=== PATIENT | male | born 2000 | race Hispanic/Latino ===

== ENCOUNTER 2022-09-05 18:55 | Emergency (ER) | payer OTHER, SELFPAY ==
[2022-09-05 19:24] VITALS: BP 132/67; PULSE 77; RESP 20; TEMP 36.2; O2SAT 98; BMI 38.2
[2022-09-05 20:19] LABS: Influenza A - CEPHEID Flu A NEGATIVE (NEGATIVE); Influenza B - CEPHEID Flu B NEGATIVE (NEGATIVE); Respiratory Syncytial Virus Negative (Negative)
[2022-09-05 20:22] LABS: COVID-19 CEPHEID 4-PLEX PCR Negative (Negative)
[2022-09-05 22:01] VITALS: PULSE 59; RESP 16; O2SAT 100
--- NOTE | 2022-09-05 22:23 | ED.GENADULT ---
HPI - General Adult General Chief complaint: Upper Respiratory Symptoms Stated complaint: Cough/Wheeze/Fever Time Seen by Provider: 09/05/22 22:03 Source: patient Mode of arrival: Ambulatory History of Present Illness HPI narrative: Otherwise healthy 22-year-old male here for evaluation of a couple days of coughing and occasional wheezing and fevers. He has tried [id number] medications without much improvement. No prior history of lung pathology. Related Data Previous Rx's Medication Instructions Recorded albuterol sulfate 90 mcg/actuation 2 puff inhalation Q6H PRN 09/05/22 aerosol inhaler shortness of breath or wheezing #8.5 grams Review of Systems Constitutional Constitutional: Reports system reviewed and no additional complaints, except as documented ENT Ears, Nose, Mouth, and Throat: Reports system reviewed and no additional complaints, except as documented Respiratory Respiratory: Reports system reviewed and no additional complaints, except as documented Allergic/Immunologic Allergic/Immunologic: Reports system reviewed and no additional complaints, except as documented Patient History Social History Smoking Status: Never smoker Smoking Status: Never smoker alcohol intake frequency: a few times a month Substance Use Type: does not use Exam Initial Vital Signs Initial Vital Signs: Vital Signs Temperature 97.2 F L 09/05/22 19:24 Pulse Rate 77 09/05/22 19:24 Respiratory Rate 20 09/05/22 19:24 Blood Pressure 132/67 09/05/22 19:24 Pulse Oximetry 98 09/05/22 19:24 Oxygen Delivery Method 09/05/22 19:24 HENFL Head: normal to inspection and normocephalic Mouth: moist mucous membranes Resp Effort & Inspection: normal respiratory effort Auscultation: clear to auscultation bilaterally and no wheezes Cardio Rate: regular rate Skin General: no rashes or lesions noted Neuro General: patient alert and moves all extremities Extrem General: normal to inspection and capillary refill normal Course Orders Ordered: ED Orders 09/05/22 19:30 Covid-19 + FLU A/B + RSV - PCR Stat 09/05/22 22:05 Throat Culture Stat Vital Signs Vital signs: Vital Signs - 8 hr 09/05/22 22:01 09/05/22 23:18 Pulse Rate 59 L 60 Respiratory Rate 16 16 Blood Pressure 132/77 Pulse Oximetry 100 98 Oxygen Delivery Method Room Air Room Air Medical Decision Making Lab Data Labs: Lab Results 09/05/22 Range/Units 19:30 SARS-CoV-2 (PCR) Negative (Negative) Influenza A (RT-PCR) Flu a negative (NEGATIVE) Influenza B (RT-PCR) Flu b negative (NEGATIVE) RSV (PCR) Negative (Negative) Point of Care Testing Rapid Strep A Negative Point of care testing: Point of Care Testing Rapid Strep A Negative MDM Narrative Medical decision making narrative: Clear lung exam. No indication for radiologic studies. No indication for antibiotics. No fevers. Provided reassurance and [id number] medications he could try home. Was sent home with an albuterol inhaler if he starts to have wheezing again. He expressed understanding and agreement. Discharge Plan Departure Patient Disposition: Home Clinical Impression: Wheezing, Cough Instructions: Cough Activity Restrictions/Additional Instructions: A prescription for an inhaler was sent to [facility] and you can use this as needed and as directed. Contact your primary provider for a follow-up. Return to the emergency department for any new or worsening symptoms. Prescriptions: New albuterol sulfate 90 mcg/actuation HFA aerosol inhaler 2 puff inhalation Q6H PRN (Reason: shortness of breath or wheezing) Qty: 8.5 0RF Referrals: Miscellaneous,Doctor, MD [Primary Care Provider] - Visit Report Forms: Patient Portal/API
[2022-09-05 23:18] VITALS: BP 132/77; PULSE 60; RESP 16; O2SAT 98
== END 2022-09-05 23:19 | disposition home or self-care (01) ==
PROVIDERS: Emergency Provider Emergency Medicine
DX: R06.2 Wheezing (principal); R05.9 Cough, unspecified; Z20.822 Contact with and (suspected) exposure to COVID-19
CPT/HCPCS: 0241U; 87070; 87880; 99282

== ENCOUNTER 2023-07-27 03:07 | Emergency (ER) | payer OTHER, SELFPAY ==
[2023-07-27 03:17] VITALS: BP 140/83; PULSE 100; RESP 20; TEMP 36.5; O2SAT 97; BMI 35.6
--- NOTE | 2023-07-27 03:17 | DI.RAD.S_ITS ---
PROCEDURE: XR SHOULDER LT MIN 2V INDICATIONS: poss dislocation TECHNIQUE: 3 views of the shoulder were acquired. COMPARISON: None. FINDINGS: Bones: No fractures or dislocations. No suspicious bony lesions. Visualized ribs appear intact. Soft tissues: No suspicious soft tissue calcifications. IMPRESSION: No acute shoulder fracture or dislocation. No discrepancies from preliminary reading. Dictated by: Michael Gutierrez M.D. on 07/27/2023 at 8:26 Approved by: Michael Gutierrez M.D. on 07/27/2023 at 8:26
--- NOTE | 2023-07-27 03:25 | ED.UPPEXIN ---
HPI - Extremity Injury (Upper) General Chief Complaint: Extremity Injury, Upper Stated Complaint: lt shoulder possibly disclocated Time Seen by Provider: 07/27/23 03:22 Source: patient Mode of arrival: Ambulatory History of Present Illness HPI narrative: Patient 23-year-old male who presents today with left shoulder pain and injury. Reports that he tripped over his dog fell down about 6 stairs landing on his left shoulder. He did not hit his head no neck pain no chest pain or shortness of breath. He denies any numbness or tingling in his shoulder. He is pain in 1 area but still able to move it pretty good but he does have decreased range of motion. Related Data Previous Rx's Medication Instructions Recorded albuterol sulfate 90 mcg/actuation 2 puff inhalation Q6H PRN 09/05/22 aerosol inhaler shortness of breath or wheezing #8.5 grams Allergies Allergy/AdvReac Type Severity Reaction Status Date / Time No Known Drug Allergies Allergy Verified 07/27/23 03:56 Review of Systems Review of Systems ROS Unobtainable: All systems reviewed & are unremarkable except as noted in HPI and below Patient History Social History Smoking Status: Never smoker Smoking Status: Never smoker alcohol intake frequency: a few times a month Substance Use Type: does not use Exam Initial Vital Signs Initial Vital Signs: Vital Signs Temperature 97.7 F 07/27/23 03:17 Pulse Rate 100 H 07/27/23 03:17 Respiratory Rate 20 07/27/23 03:17 Blood Pressure 140/83 07/27/23 03:17 Pulse Oximetry 97 07/27/23 03:17 Oxygen Delivery Method Room Air 07/27/23 03:17 GENERAL: Well-appearing, well-nourished and in no acute distress. CARDIOVASCULAR: peripheral pulses in tact, cap refill <2 sec RESPIRATORY: No respiratory distress, speaks in full sentences without difficulty [ABDOMEN: Soft, nontender, no guarding or rebound] EXTREMITIES: Normal range of motion, no clubbing or edema. Neurovascularly intact Left upper extremity no clavicle step-offs tender over humerus. No biceps injury good dab duction although limited, adduction extension and flexion. Mild decreased range of motion with internal external rotation NEUROLOGICAL: Cranial nerves II through XII grossly intact. Normal gait and speech. SKIN: Warm, dry, no petechiae, no rashes or lesions. Course Orders Ordered: ED Orders 07/27/23 03:17 XR shoulder LT min 2V Stat Discontinued Medications Ibuprofen (Ibuprofen 400 Mg Tablet) 800 mg PO NOW ONE Stop: 07/27/23 03:44 Last Admin: 07/27/23 03:58 Dose: 800 mg Vital Signs Vital signs: Vital Signs - 8 hr 07/27/23 03:17 Temperature 97.7 F Pulse Rate 100 H Respiratory Rate 20 Blood Pressure 140/83 Pulse Oximetry 97 Oxygen Delivery Method Room Air MDM - Extremity Injury (Upper) Imaging Data Extremity x-ray #1: My Impression: Negative for fracture Radiologist's Impression: Normal shoulder MDM Narrative Medical decision making narrative: Patient 23-year-old male who presents with left shoulder pain after fall down 6 stairs. He has no other injury. He is mildly tender but actually is pretty good range of motion. X-rays reviewed by myself and there is no dislocation or fracture. Supportive care only. He is given ibuprofen here in the ED. Discharge Plan Departure Patient Disposition: Home Clinical Impression: Left shoulder strain Instructions: Shoulder Sprain Activity Restrictions/Additional Instructions: *You have been diagnosed with left shoulder sprain *What to do: At this time increase activity as tolerated. Ice as needed *Continue to take medications as directed *Follow up with your primary care provider in 2-3 days or call [phone] *Return to ER if you should have increased pain numbness tingling weakness [or] any new, worsening or concerning symptoms Prescriptions: No Action albuterol sulfate 90 mcg/actuation HFA aerosol inhaler 2 puff inhalation Q6H PRN (Reason: shortness of breath or wheezing) Qty: 8.5 0RF Referrals: Miscellaneous,DoctorMD [Primary Care Provider] - Stand Alone Forms: Patient Portal/API, Work Release Note
[2023-07-27] MEDS: IBUPROFEN 400 MG TABLET 800 MG PO (03:58)
== END 2023-07-27 04:04 | disposition home or self-care (01) ==
PROVIDERS: Emergency Provider Emergency Medicine
DX: S43.402A Unspecified sprain of left shoulder joint, initial encounter (principal); W10.9XXA Fall (on) (from) unspecified stairs and steps, initial encounter
CPT/HCPCS: 73030; 99283

== ENCOUNTER 2023-08-01 14:58 | Emergency (ER) | payer OTHER, SELFPAY ==
[2023-08-01 15:13] VITALS: BP 147/70; PULSE 86; RESP 16; TEMP 37.2; O2SAT 98; BMI 35.6
[2023-08-01 15:48] LABS: Strep Grp A by PCR Rapid Negative (Negative)
[2023-08-01 15:49] LABS: COVID19 -Nasal RAPID POSITIVE (Negative)
--- NOTE | 2023-08-01 16:39 | ED_ITS ---
HPI - General Adult General Chief complaint: Upper Respiratory Symptoms Stated complaint: Sore throat, Fever Time Seen by Provider: 08/01/23 16:39 Source: patient Mode of arrival: Ambulatory History of Present Illness HPI narrative: Otherwise healthy 23-year-old young man has 48 hours of sore throat, dry cough, mild diarrhea with intermittent fevers. No one else is sick at home. He is not complaining of severe dyspnea, palpitations or chest pain. Related Data Previous Rx's Medication Instructions Recorded albuterol sulfate 90 mcg/actuation 2 puff inhalation Q6H PRN 09/05/22 aerosol inhaler shortness of breath or wheezing #8.5 grams benzonatate 200 mg capsule 200 mg PO BID-TID PRN cough #14 08/01/23 caps Allergies Allergy/AdvReac Type Severity Reaction Status Date / Time No Known Drug Allergies Allergy Verified 07/27/23 03:56 Review of Systems Review of Systems Narrative: Pertinent positive and negative findings as per HPI Patient History Social History Smoking Status: Never smoker Smoking Status: Never smoker alcohol intake frequency: a few times a month Substance Use Type: does not use Exam Initial Vital Signs Initial Vital Signs: Vital Signs Temperature 98.9 F 08/01/23 15:13 Pulse Rate 86 08/01/23 15:13 Respiratory Rate 16 08/01/23 15:13 Blood Pressure 147/70 H 08/01/23 15:13 Pulse Oximetry 98 08/01/23 15:13 Oxygen Delivery Method Room Air 08/01/23 15:13 General: Healthy appearing, in no acute distress. Able to give a complete and coherent history. Well-nourished well-developed HEENT: Moist mucous membranes, normal sclera with reactive pupils, mild pharyngeal edema without exudate Respiratory: Lungs are clear to auscultation, no wheezing no rales no rhonchi. Full and symmetrical air movement Cardiac: Regular rate and rhythm no murmurs no bruits Abdomen: Soft, nontender, good bowel tones, no flank pain Skin: Warm and dry, no rashes Neurologic: Grossly neurologically intact with no obvious asymmetries or abnormalities Psych: Cooperative, appropriate insight and affect Course Orders Ordered: ED Orders 08/01/23 15:18 COVID19 -Nasal RAPID Stat Strep Grp A by PCR Rapid Stat Throat Culture Stat Vital Signs Vital signs: Vital Signs - 8 hr 08/01/23 15:13 08/01/23 17:01 Temperature 98.9 F Pulse Rate 86 79 Respiratory Rate 16 18 Blood Pressure 147/70 H 156/69 H Pulse Oximetry 98 97 Oxygen Delivery Method Room Air Room Air Medical Decision Making Lab Data Labs: Lab Results 08/01/23 Range/Units 15:18 SARS-CoV-2 (PCR) Positive H (Negative) Group A Strep (PCR) Negative (Negative) MDM Narrative Medical decision making narrative: CC: 2 days of cough, sore throat Data collected from: patient, Differential considered: Strep throat, upper respiratory infection, peritonsillar abscess Exam documented above, pertinent findings include: Benign exam with no significant wheeze, rhonchi or abdominal tenderness Lab Test results independently reviewed as above. Pertinent findings: Respiratory panel was positive for COVID Rapid strep screen is negative Discussion: 23-year-old gentleman with 48 hours of upper respiratory symptoms consistent with COVID with a positive PCR COVID test. He is not hypoxic he does not have significant risk factors for decompensation. Findings reviewed with him recommended that he not return to work until which will be at least 5 days after initial day of symptoms. Work note is given. Anticipated course of recovery is reviewed and reasons to return to the emergency department should he worsen or not follow anticipated course of recovery. Questions are answered and he is safe for discharge Discharge Plan Departure Patient Disposition: Home Clinical Impression: COVID-19 Instructions: COVID-19 Activity Restrictions/Additional Instructions: Thank you for coming in today You have COVID. Your oxygen levels are appropriate and you are not having any wheezing. Expect to have a sore throat, be tired likely low-grade headaches perhaps diarrhea for up to 5 days. You can use the benzonatate capsules to help suppress the cough. Prescription was electronically transmitted to [facility] in [place] Using 400 mg of ibuprofen (2 qfuy-tjw-[id number] pills) and 1 Tylenol every 6 hours can be very helpful in controlling pain. If you find that you are getting worse or develop any new symptoms, please feel free to return to the emergency department for further evaluation. Prescriptions: New benzonatate 200 mg capsule 200 mg PO BID-TID PRN (Reason: cough) Qty: 14 0RF No Action albuterol sulfate 90 mcg/actuation HFA aerosol inhaler 2 puff inhalation Q6H PRN (Reason: shortness of breath or wheezing) Qty: 8.5 0RF Referrals: Miscellaneous,Doctor, MD [Primary Care Provider] - Stand Alone Forms: Patient Portal/API, Work Release Note
[2023-08-01 17:01] VITALS: BP 156/69; PULSE 79; RESP 18; O2SAT 97
[2023-08-01] MEDS: BENZONATATE 100 MG CAPSULE PO (17:45)
== END 2023-08-01 17:49 | disposition home or self-care (01) ==
PROVIDERS: Emergency Provider Emergency Medicine
DX: U07.1 COVID-19 (principal)
CPT/HCPCS: 87070; 87635; 87651; 99283; C9803

== ENCOUNTER 2024-07-20 19:01 | Emergency (ER) | payer OTHER, SELFPAY ==
[2024-07-20 19:11] VITALS: BP 158/67; PULSE 59; RESP 19; TEMP 36.3; O2SAT 98; BMI 31.6
[2024-07-20] MEDS: HYDROCODONE/ACET 5/325 TABLET 1 TAB PO (21:17)
[2024-07-20] MEDS: KETOROLAC 30 MG/ML VIAL IM (21:17)
--- NOTE | 2024-07-20 22:01 | ED.BACK ---
HPI - Back Pain/Injury General Chief Complaint: Back Pain/Injury Stated Complaint: back pain Time Seen by Provider: 07/20/24 20:09 Source: patient Mode of arrival: Ambulatory Limitations: no limitations History of Present Illness HPI Narrative: Patient is a 24-year-old male who approximately 24 hours ago while doing squats working the onset left-sided back discomfort. Skin changes. He states the discomfort mainly occurs when moves. No problems urinating. No problems with bowel movements has not taken anything for symptoms prior to arrival. Related Data Previous Rx's Medication Instructions Recorded albuterol sulfate 90 mcg/actuation 2 puff inhalation Q6H PRN 09/05/22 aerosol inhaler shortness of breath or wheezing #8.5 grams benzonatate 200 mg capsule 200 mg PO BID-TID PRN cough #14 08/01/23 caps cyclobenzaprine 10 mg tablet 10 mg PO TID PRN muscle spasm #14 07/20/24 tabs Allergies Allergy/AdvReac Type Severity Reaction Status Date / Time No Known Drug Allergies Allergy Verified 07/27/23 03:56 Review of Systems Constitutional Constitutional: Reports system reviewed and no additional complaints, except as documented Musculoskeletal Musculoskeletal: Reports system reviewed and no additional complaints, except as documented Integumentary/Breasts Skin/Breast: Reports system reviewed and no additional complaints, except as documented Neurologic Neurologic: Reports system reviewed and no additional complaints, except as documented Hematologic/Lymphatic On Anticoagulants: No Patient History Social History Smoking Status: Never smoker Smoking Status: Never smoker alcohol intake frequency: a few times a month Substance Use Type: does not use Exam Initial Vital Signs Initial Vital Signs: Vital Signs Temperature 97.4 F L 07/20/24 19:11 Pulse Rate 59 L 07/20/24 19:11 Respiratory Rate 19 07/20/24 19:11 Blood Pressure 158/67 H 07/20/24 19:11 Pulse Oximetry 98 07/20/24 19:11 Oxygen Delivery Method Room Air 07/20/24 19:11 Const General: cooperative and comfortable Resp Effort & Inspection: normal respiratory effort Back/Spine/Pelvis Back: No CVA tenderness Thoracic/Lumbar Spine: paraspinal tenderness (Left-sided lumbar paraspinal), No thoracic spinal tenderness and No lumbar spinal tenderness Skin General: no rashes or lesions noted Neuro General: patient alert, patient awake, patient oriented x3 and moves all extremities Gait: normal gait Course Orders Ordered: Discontinued Medications Hydrocodone Bitart/Acetaminophen (Hydrocodone/Acet 5/325 Tablet) 1 tab PO NOW ONE Stop: 07/20/24 21:01 Last Admin: 07/20/24 21:17 Dose: 1 tab Documented By: HUMBERTO Cyclobenzaprine HCl (Cyclobenzaprine 10 Mg Prepack) 1 bottle MISC DIRECTED ONE Stop: 07/20/24 22:03 Last Admin: 07/20/24 22:12 Dose: 1 bottle Documented By: HUMBERTO Ketorolac Tromethamine (Ketorolac 30 Mg/Ml Vial) 30 mg IM NOW ONE Stop: 07/20/24 21:01 Last Admin: 07/20/24 21:17 Dose: 30 mg Documented By: HUMBERTO Vital Signs Vital signs: Vital Signs - 8 hr 07/20/24 22:18 Pulse Rate 57 L Respiratory Rate 18 Blood Pressure 143/62 H Pulse Oximetry 98 Oxygen Delivery Method Room Air MDM - Back Pain/Injury MDM Narrative Medical decision making narrative: History and physical exam and symptoms are most consistent with musculoskeletal etiology. Low suspicion for fracture. Low suspicion for cauda equina. I do suspect that this is actually muscular. No indication for radiologic studies. Will discharge home with instructions for conservative measures to include heat and ice. Will send home with muscle relaxers as well. Patient was given return precautions and follow-up instructions. He expressed understanding and agreement with plan. Discharge Plan Departure Patient Disposition: Home Clinical Impression: Lumbar back pain Instructions: DI for Low Back Pain Activity Restrictions/Additional Instructions: Recommend that you continue with conservative measures to include heat/ice and also light stretching and anti-inflammatories. Use the muscle relaxers as needed. Contact your primary doctor for a follow-up. Return to the emergency department for new symptoms. Prescriptions: New cyclobenzaprine 10 mg tablet 10 mg PO TID PRN (Reason: muscle spasm) Qty: 14 0RF No Action albuterol sulfate 90 mcg/actuation HFA aerosol inhaler 2 puff inhalation Q6H PRN (Reason: shortness of breath or wheezing) Qty: 8.5 0RF benzonatate 200 mg capsule 200 mg PO BID-TID PRN (Reason: cough) Qty: 14 0RF Referrals: Miscellaneous,Doctor, [Primary Care Provider] - Stand Alone Forms: Patient Portal/API
[2024-07-20] MEDS: CYCLOBENZAPRINE 10 MG PREPACK 1 BOTTLE MISC (22:12)
[2024-07-20 22:18] VITALS: BP 143/62; PULSE 57; RESP 18; O2SAT 98
== END 2024-07-20 22:20 | disposition home or self-care (01) ==
PROVIDERS: Emergency Provider Emergency Medicine
DX: M54.50 Low back pain, unspecified (principal)
CPT/HCPCS: 96372; 99283; J1885